=== PATIENT | female | born 1945 ===

== ENCOUNTER → 2018-03-17 18:36 | Outpatient (REF) | payer MEDICARE, SELFPAY | LOC: LAB 18:36 | PROVIDERS: Visit Provider Family Medicine | DX: N39.0 Urinary tract infection, site not specified (principal) | CPT/HCPCS: 87077; 87086; 87186 ==

== ENCOUNTER → 2018-04-15 19:48 | Outpatient (REF) | payer MEDICARE, SELFPAY ==
[2018-04-15 20:00] LABS: BUN Creatinine Ratio 28.2 (6-22); Blood Urea Nitrogen 31 mg/dL (7-17); Calcium 9.9 mg/dL (8.4-10.2); Carbon Dioxide 26 mmol/L (22-32); Chloride 104 mmol/L (98-107); Estimated Glomerular Filt Rate 48.6 mL/min (>60); Glucose 88 mg/dL (80-110); HEMOLYSIS 17 (0-50); Potassium 4.9 mmol/L (3.4-5.1); Sodium 143 mmol/L (137-145)
[2018-04-15 20:45] LABS: Appearance Urine UA SL CLOUDY; Bilirubin Urine UA NEGATIVE (NEGATIVE); Color Urine UA YELLOW; Glucose Urine UA NEGATIVE (Normal); Ketones Urine UA NEGATIVE (NEGATIVE); Leukocyte Esterase Urine UA 3+ (NEGATIVE); Nitrite Urine UA POSITIVE (Negative); Occult Blood Urine UA 1+ (Negative); Protein Urine UA 1+ (Negative); Urobilinogen Urine UA 0.2 E.U./dL (0.2)
[2018-04-15 20:51] LABS: Bacteria Urine Many (>30); Culture Indicated Urine Specimen Cultured; Hyaline Casts Urine 1-5/LPF; Mucus Urine 1+ (Negative); RBC Urine 5-10/HPF (0-5/HPF); Squamous Epithelial Cell Urine 1-5 /HPF; Transitional Epi Cells Urine 1-5/HPF (0-5/HPF); WBC Urine 30-100/HPF (0-5/HPF)
== END ==
LOC: LAB 19:48
PROVIDERS: Visit Provider Family Medicine
DX: I10 Essential (primary) hypertension (principal); E11.9 Type 2 diabetes mellitus without complications
CPT/HCPCS: 80048; 81001; 87077; 87086; 87186